=== PATIENT | female | born 1990 | race African-American/Black ===

== ENCOUNTER 2019-07-17 05:25 | Inpatient (IN) ==
[2019-07-17] MEDS ORDERED: ONDANSETRON 4 MG/2 ML VIAL IV PRN ×2 (05:38→12:14)
[2019-07-17] MEDS ORDERED: LACTATED RINGERS 500 ML IV PRN (05:38)
[2019-07-17] MEDS ORDERED: BUTORPHANOL 2 MG/ML VIAL IV PRN (05:38)
[2019-07-17] MEDS ORDERED: MEPERIDINE 50 MG/1 ML VIAL IV PRN (05:38)
[2019-07-17] MEDS: LACTATED RINGERS 1,000 ML IV SCH (06:00)
[2019-07-17 06:10] LABS: Basophils % 0.4 % (0.0-0.8); Eosinophils % 0.5 % (0.00-10.9); Hematocrit 29.8 VOL% (35.7-47.0); Hemoglobin 9.6 GM/DL (12.0-16.0); Immature Granulocytes % 0.8 %; Immature Granulocytes Absolute 0.06 #; Lymphocytes # 1.2 10*3/uL (1.4-4.0); Lymphocytes % 16.1 % (21.3-54.2); Mean Corpuscular HGB Conc 32.2 GM/DL (32-36); Mean Corpuscular Volume 87.9 FL (87-102); Mean Platelet Volume 8.9 FL (9.6-12.0); Monocytes % 11.2 % (1.7-12.7); Platelet Count 159 T/CUMM (130-400); Red Blood Count 3.39 MC/CUMM (3.8-5.5); White Blood Count 7.4 T/CUMM (4-12)
[2019-07-17] MEDS: OXYTOCIN/LR 20 UNIT/1,000 ML BAG IV SCH (06:24)
[2019-07-17] MEDS ORDERED: hydrOXYzine HCL 25 MG/1 ML VIAL IM PRN (07:17)
[2019-07-17] MEDS ORDERED: diphenhydrAMINE 50 MG/1 ML VIAL IV PRN ×2 (07:17)
[2019-07-17] MEDS ORDERED: PROMETHAZINE 25 MG/1 ML VIAL IM ONE (07:17)
[2019-07-17] MEDS ORDERED: ePHEDrine 50 MG/ML AMP IV PRN (07:17)
[2019-07-17] MEDS ORDERED: NALOXONE 0.4 MG/ML VIAL IV PRN (07:17)
[2019-07-17] MEDS ORDERED: LACTATED RINGERS 1,000 ML IV ONE (07:18)
[2019-07-17] MEDS ORDERED: FAMOTIDINE 20 MG/2 ML VIAL IV ONE (07:18)
[2019-07-17] MEDS ORDERED: CITRIC ACID/SODIUM CITRATE 30 ML UDCUP PO ONE (07:18)
[2019-07-17 09:39] LABS: Apearance,Urine CLEAR (Clear); Bacteria,Urine Occasional /HPF (Few); Bilirubin,Urine Negative (Negative); Blood, Urine Negative (Negative); Glucose,Urine (UA) Negative (Negative); Ketones,Urine 20 mg/dL (Negative); Mucus,Urine Occasional /LPF (Occasional); Nitrite,Urine Negative (Negative); Protein,Urine Negative; RBC,Urine 8 /HPF (0-4); Squamous Epithelial Cell,Urine Occasional /HPF (0-10); Urine Color Yellow (Yellow); Urine Specific Gravity 1.015 (1.001-1.035); Urine Urobilinogen < 2.0 EU/DL (0.2-1.0); WBC,Urine 1 /HPF (0-6)
[2019-07-17] MEDS ORDERED: CARBOPROST TROMETHAMINE 250 MCG/ML AMP IM ONE (11:33)
[2019-07-17] MEDS ORDERED: METHYLERGONOVINE 0.2 MG/1 ML AMP ONE (11:33)
[2019-07-17] MEDS ORDERED: OXYTOCIN/LR 20 UNIT/1,000 ML BAG IV ONE ×2 (11:33→12:14)
[2019-07-17] MEDS ORDERED: TRANEXAMIC ACID 1,000 MG/10 ML VIAL ONE (11:33)
[2019-07-17] MEDS ORDERED: miSOPROStol 200 MCG TABLET ONE (11:33)
[2019-07-17] MEDS ORDERED: ACETAMINOPHEN 325 MG TABLET PO PRN (12:14)
[2019-07-17] MEDS ORDERED: oxyCODONE/ACETAMINOPHEN 5-325 MG TABLET PO PRN ×2 (12:14)
[2019-07-17] MEDS ORDERED: BENZOCAINE 20%/MENTHOL 0.5% SPRAY 56 GM CAN TOP PRN (12:14)
[2019-07-17] MEDS ORDERED: RHO(D) IMMUNE GLOBULIN 300 MCG SYRINGE IM ONE (12:14)
[2019-07-17] MEDS ORDERED: BISACODYL 10 MG SUPP RECTAL PRN (12:14)
[2019-07-17] MEDS ORDERED: WITCH HAZEL PADS 100/JAR TOP PRN (12:14)
[2019-07-17] MEDS ORDERED: HYDROCORTISONE 2.5% RECTAL CREAM 30 GM TUBE TOP PRN (12:14)
[2019-07-17] MEDS ORDERED: DIPH/TET/ACEL PERT BOOSTER VACCINE 0.5 ML VIAL IM ONE (12:14)
[2019-07-17] MEDS ORDERED: IBUPROFEN 800 MG TABLET PO PRN (12:14)
[2019-07-17] MEDS ORDERED: MEASLES/MUMPS/RUBELLA VACCINE 0.5 ML VIAL SUBCUT ONE (12:14)
[2019-07-17] MEDS ORDERED: LANOLIN 50% CREAM 0.3 OZ TUBE TOP PRN (12:14)
[2019-07-17] MEDS: DOCUSATE SODIUM 100 MG CAPSULE PO SCH (21:17)
[2019-07-18 05:31] LABS: Basophils % 0.3 % (0.0-0.8); Eosinophils % 0.3 % (0.00-10.9); Hematocrit 28.7 VOL% (35.7-47.0); Hemoglobin 9.3 GM/DL (12.0-16.0); Immature Granulocytes % 0.6 %; Immature Granulocytes Absolute 0.07 #; Lymphocytes # 1.6 10*3/uL (1.4-4.0); Lymphocytes % 14.1 % (21.3-54.2); Mean Corpuscular HGB Conc 32.4 GM/DL (32-36); Mean Corpuscular Volume 86.7 FL (87-102); Mean Platelet Volume 9.5 FL (9.6-12.0); Monocytes % 10.5 % (1.7-12.7); Neutrophils % 74.2 % (38.7-73.9); Platelet Count 171 T/CUMM (130-400); Red Blood Count 3.31 MC/CUMM (3.8-5.5); Red Cell Distribution Width 14.1 % (9.3-17.3); White Blood Count 11.5 T/CUMM (4-12)
[2019-07-18] MEDS: DOCUSATE SODIUM 100 MG CAPSULE PO SCH ×2 (08:15→20:48)
[2019-07-18] MEDS: fentaNYL 2 MCG/ROPIV 0.2% EPID 100 ML EPIDURAL SCH ×2 (18:08→18:09)
[2019-07-18] MEDS: LACTATED RINGERS 1,000 ML IV SCH (18:11)
[2019-07-18] MEDS: OXYTOCIN/LR 20 UNIT/1,000 ML BAG IV SCH (18:12)
[2019-07-19] MEDS ORDERED: BENZOCAINE/MENTHOL LOZENGE 18/BOX PO PRN (00:14)
[2019-07-19 08:13] VITALS: BP 113/55
[2019-07-19] MEDS: DOCUSATE SODIUM 100 MG CAPSULE PO SCH (08:40)
== END 2019-07-19 13:20 | disposition home or self-care (01) | DRG 807 ==
LOC: N.LDOUT 05:25 → N.LD 05:31 → N.OB 15:00
PROVIDERS: ADMIT Specialist; ATTEND Specialist